=== PATIENT | male | born 1960 | race Two or more races ===

== ENCOUNTER 2017-11-11 06:50 | Day surgery (SDC) | payer BC ==
[2017-11-11] VITALS (11 sets, daily range): BP systolic 91–121; BP diastolic 42–81
[~2017-11-11] VITALS: Ht 162.6 cm; Wt 86.2 kg
[~2017-11-11 06:50] MED LIST: ACTOS15 MG ORAL; AMLODIPINE BESYL5 MG ORAL; ASPIR-LOW81 MG ORAL; ATORVASTATIN CA20 MG ORAL; Clindamycin 600mg 50 ML IV SCH; FENOFIBRATE145 M1 ORAL; GLIPIZIDE5 MG ORAL; METFORMIN HCL1000 M1 ORAL; VALSARTAN-HCTZ1 EAC3 ORAL; VITAMIN B122500 MCG PO; VITAMIN D1000 UNI1 ORAL; celeBREX 200mg Cap **SURGERY PATIENTS ONLY ORAL SCH; oxyCONTIN 20mg tab ORAL SCH
--- NOTE | 2017-11-11 06:55 | Pre-Procedure Note/Attestation ---
Pre-Procedure Note/Attestation Complete Prior to Procedure Planned Procedure: left Procedure Narrative: left tibial tunnel loc removal Indications for Procedure Pre-Operative Diagnosis: left knee painful implant Attestation I attest that I discussed the nature of the procedure; its benefits; risks and complications; and alternatives (and the risks and benefits of such alternatives ), prior to the procedure, with the patient (or the patient's legal aircraft sales representative). I attest that, if there was a reasonable possibility of needing a blood transfusion, the patient (or the patient's legal aircraft sales representative) was given the [facility] standardized written summary, pursuant to the Bharat Rebecca Blood Safety Act ([place] Health and Safety Code # 1645, as amended). I attest that I re-evaluated the patient just prior to the surgery and that there has been no change in the patient's H&P, except as documented below: none Rigoberto Dela Cruz MD Nov 11, 2017 06:55
[2017-11-11] MEDS ORDERED: Dexamethasone 4mg/ml vial ONE (09:40)
[2017-11-11] MEDS ORDERED: Lidocaine 1% MPF 10mg/ml 5ml ONE (09:40)
[2017-11-11] MEDS ORDERED: Midazolam 2mg/2ml Inj ONE (09:41)
[2017-11-11] MEDS ORDERED: fentaNYL 100 mcg/2 mL IV ONE (09:44)
[2017-11-11] MEDS ORDERED: LR 1000ml 1,000 ML IVLG SCH (09:49)
--- NOTE | 2017-11-11 09:55 | Anethesia Preoperative Eval ---
Anesthesia Pre-op PMH/ROS General Date of Evaluation: Nov 11, 2017 Time of Evaluation: 10:54 Anesthesiologist: Mc ASA Score: ASA 3 Mallampati Score Class I : Soft palate, uvula, fauces, pillars visible Class II: Soft palate, uvula, fauces visible Class III: Soft palate, base of uvula visible Class IV: Only hard plate visible Mallampati Classification: Class II Surgeon: Jose De Jesus Diagnosis: L Leg Pain Surgical Procedure: L Tibial Screw Removal Anesthesia History: none Family History: no anesthesia problems Allergies: Coded Allergies: PENICILLINS (Verified Allergy, Mild, 11/10/17) HIVES TETRACYCLINES (Verified Allergy, Unknown, 11/07/17) Medications: see eMAR Past Medical History Pulmonary: Reports: JAY Endocrine: Reports: DM Other: obesity - BMI 34 Anesthesia Pre-op Phys. Exam Physician Exam Last Vital Signs Date Time Temp Pulse Resp B/P (MAP) Pulse Ox O2 Delivery O2 Flow Rate FiO2 11/11/17 07:28 Room Air Room Air 11/11/17 07:20 97.2 88 18 121/81 (94) 95 97.2 Constitutional: NAD Neurologic: CN 2-12 intact Cardiovascular: RRR Respiratory: CTA Gastrointestinal: S/NT/ND Airway Exam Mallampati Score: Class II MO: limited ROM: limited Teeth: intact Anesthesia Pre-op A/P Risk Assessment & Plan Assessment: ASA 3 Plan: GA, BIS Status Change Before Surgery: No Pre-Antibiotics Dru Gram Ancef IV Given Within 1 Hr of Incision: Yes Time Given: 11:11 Niels Bentley MD Nov 11, 2017 09:55
--- NOTE | 2017-11-11 09:56 | 48 Hour Post Anesthesia Eval ---
Post Anesthesia Evaluation Procedure: L Tibial Screw Removal Date of Evaluation: Nov 11, 2017 Time of Evaluation: 14:23 Blood Pressure Systolic: 122 0: 77 Pulse Rate: 81 Respiratory Rate: 16 Temperature (Fahrenheit): 97.8 O2 Sat by Pulse Oximetry: 94 Airway: patent Nausea: No Vomiting: No Pain Intensity: 2 Hydration Status: adequate Cardiopulmonary Status: Stable Mental Status/LOC: patient returned to baseline Follow-up Care/Observations: 0 Post-Anesthesia Complications: 0 Follow-up care needed: ready to discharge Niels Bentley MD Nov 11, 2017 09:56
--- NOTE | 2017-11-11 09:56 | Immediate Post-Op Evaluation ---
Immediate Post-Op Evalulation Immediate Post-Op Evalulation Procedure: L Tibial Screw Removal Date of Evaluation: Nov 11, 2017 Time of Evaluation: 12:15 IV Fluids: 900 LR Blood Products: 0 Estimated Blood Loss: 2 Urinary Output: 0 Blood Pressure Systolic: 92 Blood Pressure Diastolic: 46 Pulse Rate: 83 Respiratory Rate: 16 O2 Sat by Pulse Oximetry: 95 Pain Score (1-10): 2 Nausea: No Vomiting: No Complications 0 Patient Status: awake, reacts, patent, extubated, none Hydration Status: adequate Dru Gram Ancef IV Given Within 1 Hr of Incision: Yes Time Given: 11:11 Niels Bentley MD Nov 11, 2017 09:56
[2017-11-11] MEDS ORDERED: Norco 5mg/325mg tab ORAL PRN ×2 (10:00→12:00)
[2017-11-11] MEDS ORDERED: Atropine Inj 1mg/10ml Syr IV PRN (10:00)
[2017-11-11] MEDS ORDERED: HYDROcodone/Acetamin 7.5/325 tab ORAL PRN (10:00)
[2017-11-11] MEDS ORDERED: Labetalol 5mg/ml 20ml vial IV PRN (10:00)
[2017-11-11] MEDS ORDERED: LORazepam Inj 2mg/ml 1ml IV PRN (10:00)
[2017-11-11] MEDS ORDERED: Hydromorphone 0.5mg/0.5ml inj IVP PRN (10:00)
[2017-11-11] MEDS ORDERED: DiphenhydrAMINE 50mg/ml Inj IVP PRN (10:00)
[2017-11-11] MEDS ORDERED: fentaNYL 100 mcg/2 mL IV PRN (10:00)
[2017-11-11] MEDS ORDERED: Ketorolac 30mg Inj IV PRN ×2 (10:00)
[2017-11-11] MEDS ORDERED: Metoclopramide 10mg/2ml Inj IVP PRN (10:00)
[2017-11-11] MEDS ORDERED: Midazolam 2mg/2ml Inj IVP PRN (10:00)
[2017-11-11] MEDS ORDERED: oxyCODONE HCL/Acetaminophen 5/325mg ORAL PRN (10:00)
[2017-11-11] MEDS ORDERED: NeoSporin Gu Irrig 1ml Amp IRRIG ONE (10:37)
[2017-11-11] MEDS ORDERED: Bupivacaine 0.5% Inj 30 ml vial INJ ONE (10:37)
[2017-11-11] MEDS ORDERED: Bacitracin 50000 Units Vial ONE (10:37)
[2017-11-11] MEDS ORDERED: EPINEPHrine 1mg/1ml Amp ONE (10:37)
[2017-11-11] MEDS ORDERED: Propofol 200mg/20ml IV ONE (11:00)
[2017-11-11] MEDS ORDERED: Sterile Water Irrig 1000ml IRRIG ONE (11:00)
[2017-11-11] MEDS ORDERED: LR 1000ml ONE (11:00)
[2017-11-11] MEDS ORDERED: NS Irrig 1000ml ONE (11:00)
--- NOTE | 2017-11-11 11:51 | Brief Operative Note ---
Immediate Post Operative Note Operative Note Chief Complaint: left knee painful implant Pre-op Diagnosis: left knee tibial tunnel loc pain Procedure: left knee removal of tibial tunnel loc Post-op Diagnosis: same as pre-op Findings: consistent w/pre-op dx studies Surgeon: md citlali Anesthesiologist: md tello Anesthesia: general Specimen: yes Complications: none Condition: stable Fluids: ns Estimated Blood Loss: minimal Drains: none Implant(s) used?: No Angelique Gonzalez Nov 11, 2017 11:51
[2017-11-11] MEDS ORDERED: D5 1/2NS 1,000 ML IV SCH (12:00)
[2017-11-11] MEDS ORDERED: Morphine Sulfate 2mg/ml Inj IVP PRN (12:00)
[2017-11-11] MEDS ORDERED: Tylenol #3 tab (300mg/30mg) ORAL PRN (12:00)
--- NOTE | 2017-11-11 16:45 | Operative Note - Dictated ---
DATE OF OPERATION: 11/11/2017 PREOPERATIVE DIAGNOSIS: Left knee retained painful tibial ACL fixation device which has backed out. POSTOPERATIVE DIAGNOSIS: Left knee retained painful tibial Tunneluck ACL fixation device which has backed out. PROCEDURE: Removal of Biomet tibial Tunneluck fixation device which has backed out. SURGEON: Rigoberto Dela Cruz M.D. BINDERY CHIEF: Angelique Gonzalez PA-C. ANESTHESIOLOGIST: Dr. Bentley. ANESTHESIA: LMA anesthesia. ESTIMATED BLOOD LOSS: Less than 10 mL. COMPLICATIONS: None. BRIEF HISTORY: The patient is a pleasant 57-year-old gentleman who had ACL reconstruction done. ACL reconstruction went well and he did well for about 3 to 4 years, however, he presented with slight bump over his left tibia. It was noted that the tibial hardware had backed out slightly. After full discussion of the risks and benefits of the surgery and complications associated with it, he opted for surgical treatment as described above. OPERATIVE PROCEDURE: The patient was brought to the operating table and was placed supine. All pressure points were well-padded. General LMA anesthesia was induced and the left leg was prepped and draped in usual sterile fashion. The left leg was exsanguinated and tourniquet was inflated to 275 mmHg. A standard incision was made over this hardware which could be palpated. The incision was taken through subcutaneous tissue. The Biomet tibial Tunneluck fixation device could be visualized and this was simply removed without any complications. Wounds were thoroughly irrigated. The bone was curetted. The skin was closed in 2-0 Vicryl suture and skin was closed using 3-0 Monocryl suture. Sterile dressing was applied and Steri-Strips were applied, and 0.5% Marcaine with epinephrine was injected. The patient tolerated the procedure well without any complication and was taken to recovery room in stable condition. All lap counts and instrument counts were correct. Rigoberto Dela Cruz M.D. DR: Sommer JOB#: [id number] CC: GUS
== END 2017-11-11 14:50 | disposition home or self-care (01) ==
LOC: SUR 06:50
DX: T84.84XA Pain due to internal orthopedic prosthetic devices, implants and grafts, initial encounter (principal); Y83.8 Other surgical procedures as the cause of abnormal reaction of the patient, or of later complication, without mention of misadventure at the time of the procedure; Y92.009 Unspecified place in unspecified non-institutional (private) residence as the place of occurrence of the external cause; E66.9 Obesity, unspecified; Z68.33 Body mass index [BMI] 33.0-33.9, adult; E11.9 Type 2 diabetes mellitus without complications; Z79.84 Long term (current) use of oral hypoglycemic drugs; E78.5 Hyperlipidemia, unspecified; I10 Essential (primary) hypertension; M06.9 Rheumatoid arthritis, unspecified; E55.9 Vitamin D deficiency, unspecified; K21.9 Gastro-esophageal reflux disease without esophagitis; E01.0 Iodine-deficiency related diffuse (endemic) goiter; G47.33 Obstructive sleep apnea (adult) (pediatric); Z88.1 Allergy status to other antibiotic agents; Z88.0 Allergy status to penicillin
CPT/HCPCS: 20680; 82962; J0171; J0690; J1100; J2250; J2405; J2704; J3010; J3490; J7120; 94003; 94150

== ENCOUNTER 2020-03-21 08:39 | Day surgery (SDC) | payer BC ==
[2020-03-21] VITALS (10 sets, daily range): BP systolic 84–133; BP diastolic 49–89
[~2020-03-21] VITALS: Ht 162.6 cm; Wt 90.7 kg
--- NOTE | 2020-03-21 07:09 | Pre-Procedure Note/Attestation ---
Pre-Procedure Note/Attestation Complete Prior to Procedure Planned Procedure: right Procedure Narrative: right shoulder scope, pancapsular release, resection of Ca deposit and possible RTC repair Indications for Procedure Pre-Operative Diagnosis: rt frozen shoulder Attestation I attest that I discussed the nature of the procedure; its benefits; risks and complications; and alternatives (and the risks and benefits of such alternatives), prior to the procedure, with the patient (or the patient's legal service liaison representative). I attest that, if there was a reasonable possibility of needing a blood transfusion, the patient (or the patient's legal service liaison representative) was given the [place] [facility] Services standardized written summary, pursuant to the Bharat Briar Blood Safety Act ([place] Health and Safety Code # 1645, as amended). I attest that I re-evaluated the patient just prior to the surgery and that there has been no change in the patient's H&P, except as documented below: NONE Rigoberto Dela Cruz MD Mar 21, 2020 07:09
[~2020-03-21 08:39] MED LIST changes: -Clindamycin 600mg 50 ML IV SCH; -celeBREX 200mg Cap **SURGERY PATIENTS ONLY ORAL SCH; -oxyCONTIN 20mg tab ORAL SCH
[2020-03-21] MEDS ORDERED: Ropivacaine 5mg/ml Vial 20ml INJ ONE (09:05)
[2020-03-21] MEDS ORDERED: Sodium Chloride 10ml vial INJ ONE (09:05)
[2020-03-21] MEDS ORDERED: Lidocaine 1% MPF 10mg/ml 5ml ONE (09:05)
[2020-03-21] MEDS ORDERED: LOSARTAN POTASS50 MG ORAL (09:13)
[2020-03-21] MEDS ORDERED: HYDROCHLOROTHIA25 MG ORAL (09:13)
[2020-03-21] MEDS ORDERED: ENBREL50 MG/1 M1 SUBQ (09:13)
--- NOTE | 2020-03-21 09:13 | Immediate Post-Op Evaluation ---
Immediate Post-Op Evalulation Immediate Post-Op Evalulation Procedure: R Shoulder Arthroscopy Date of Evaluation: Mar 21, 2020 Time of Evaluation: 12:45 IV Fluids: 400 LR Blood Products: 0 Estimated Blood Loss: 25 Urinary Output: 0 Blood Pressure Systolic: 91 Blood Pressure Diastolic: 54 Pulse Rate: 71 Respiratory Rate: 16 O2 Sat by Pulse Oximetry: 92 Temperature (Fahrenheit): 96.8 Pain Score (1-10): 1 Nausea: No Vomiting: No Complications 0 Patient Status: awake, reacts, patent, none Hydration Status: adequate Dru Grams Ancef IV Given Within 1 Hr of Incision: Yes Time Given: 10:11 Niels Bentley MD Mar 21, 2020 09:13
[2020-03-21] MEDS ORDERED: LR 1000ml 1,000 ML IVLG SCH (09:15)
[2020-03-21] MEDS ORDERED: Meperidine 25mg/1ml Inj (FOR RIGORS ONLY) IV PRN (09:15)
[2020-03-21] MEDS ORDERED: LORazepam Inj 2mg/ml 1ml IV PRN (09:15)
[2020-03-21] MEDS ORDERED: Atropine Sulfate 0.4mg/ml inj IVP PRN (09:15)
[2020-03-21] MEDS ORDERED: DiphenhydrAMINE 50mg/ml Inj IVP PRN (09:15)
[2020-03-21] MEDS ORDERED: fentaNYL 100 mcg/2 mL IV PRN (09:15)
[2020-03-21] MEDS ORDERED: Midazolam 2mg/2ml Inj IVP PRN (09:15)
[2020-03-21] MEDS ORDERED: Labetalol 5mg/ml 20ml vial IV PRN (09:15)
[2020-03-21] MEDS ORDERED: Metoclopramide 10mg/2ml Inj IVP PRN (09:15)
[2020-03-21] MEDS ORDERED: oxyCODONE HCL/Acetaminophen 5/325mg ORAL PRN (09:15)
[2020-03-21] MEDS ORDERED: Hydromorphone 0.5mg/0.5ml inj IVP PRN (09:15)
[2020-03-21] MEDS ORDERED: HYDROcodone/Acetamin 5/325 tab ORAL PRN ×2 (09:15→11:30)
[2020-03-21] MEDS ORDERED: HYDROcodone/Acetamin 7.5/325 tab ORAL PRN (09:15)
[2020-03-21] MEDS ORDERED: celeBREX 200mg Cap **SURGERY PATIENTS ONLY ORAL ONE ×2 (09:28→11:00)
[2020-03-21] MEDS ORDERED: oxyCONTIN 10mg tab ORAL ONE ×2 (09:28→11:00)
[2020-03-21] MEDS ORDERED: Bupivacaine 0.5% Inj 30 ml vial INJ ONE (10:23)
[2020-03-21] MEDS ORDERED: Ropivacaine 5mg/ml Vial 30ml INJ ONE (10:23)
--- NOTE | 2020-03-21 10:25 | 48 Hour Post Anesthesia Eval ---
Post Anesthesia Evaluation Procedure: R Shoulder Arthroscopy Date of Evaluation: Mar 21, 2020 Time of Evaluation: 14:48 Blood Pressure Systolic: 138 0: 89 Pulse Rate: 74 Respiratory Rate: 18 Temperature (Fahrenheit): 98 O2 Sat by Pulse Oximetry: 96 Airway: patent Nausea: No Vomiting: No Pain Intensity: 1 Hydration Status: adequate Cardiopulmonary Status: Stable Mental Status/LOC: patient returned to baseline Follow-up Care/Observations: 0 Post-Anesthesia Complications: 0 Follow-up care needed: ready to discharge Niels Bentley MD Mar 21, 2020 10:25
--- NOTE | 2020-03-21 10:25 | Anethesia Preoperative Eval ---
Anesthesia Pre-op PMH/ROS General Date of Evaluation: Mar 21, 2020 Time of Evaluation: 10:41 Anesthesiologist: Mc ASA Score: ASA 3 Mallampati Score Class I : Soft palate, uvula, fauces, pillars visible Class II: Soft palate, uvula, fauces visible Class III: Soft palate, base of uvula visible Class IV: Only hard plate visible Mallampati Classification: Class II Surgeon: Carol Diagnosis: R Shoulder Pain Surgical Procedure: R Shoulder Arthroscopy Anesthesia History: none Family History: no anesthesia problems Allergies: Coded Allergies: PENICILLINS (Verified Allergy, Mild, 11/10/17) HIVES TETRACYCLINES (Verified Allergy, Unknown, 11/07/17) Medications: see eMAR Patient NPO?: Yes Past Medical History Cardiovascular: Reports: HTN Endocrine: Reports: DM Other: obesity - BMI 36 PSxH Narrative: L Knee SX Anesthesia Pre-op Phys. Exam Physician Exam Last Vital Signs Date Time Temp Pulse Resp B/P (MAP) Pulse Ox O2 Delivery O2 Flow Rate FiO2 03/21/20 09:14 Room Air 03/21/20 09:14 97.7 84 18 133/84 95 Constitutional: NAD Neurologic: CN 2-12 intact Cardiovascular: RRR Respiratory: CTA Gastrointestinal: S/NT/ND Airway Exam Mallampati Score: Class II MO: full ROM: full Teeth: missing, intact Anesthesia Pre-op A/P Labs Chemistry Test 03/21/20 09:32 POC Whole Blood Glucose Pending Risk Assessment & Plan Assessment: ASA 3 Plan: GA, SED, Supraclavicular Block Status Change Before Surgery: No Pre-Antibiotics Dru Grams Ancef IV Given Within 1 Hr of Incision: Yes Time Given: 10:11 Niels Bentley MD Mar 21, 2020 10:25
[2020-03-21] MEDS ORDERED: Sterile Water Irrig 1000ml IRRIG ONE (11:00)
[2020-03-21] MEDS ORDERED: Clindamycin 600mg/D5W 50ml IV ONE (11:00)
[2020-03-21] MEDS ORDERED: LR 1000ml ONE (11:00)
[2020-03-21] MEDS ORDERED: NS Irrig 3000ml IRRIG ONE ×4 (11:00→11:53)
[2020-03-21] MEDS ORDERED: HYDROmorphone 1mg/ml Carpuject SUBQ PRN (11:30)
[2020-03-21] MEDS ORDERED: Tylenol #3 tab (300mg/30mg) ORAL PRN (11:30)
[2020-03-21] MEDS ORDERED: NS Irrig 1000ml IRRIG ONE (11:53)
--- NOTE | 2020-03-21 12:17 | Brief Operative Note ---
Immediate Post Operative Note Operative Note Chief Complaint: right shoulder pain Pre-op Diagnosis: right frozen shoulder Procedure: right shoulder scope, sad, mini rain, pancapsular release Post-op Diagnosis: same as pre-op Findings: consistent w/pre-op dx studies Surgeon: md citlali Door Closer Mechanic: daja cunha Anesthesiologist: md tello Anesthesia: general, regional Specimen: none Complications: none Condition: stable Fluids: ns Estimated Blood Loss: minimal Drains: none Implant(s) used?: No Angelique Cunha Mar 21, 2020 12:17
[2020-03-21] MEDS ORDERED: D5 1/2NS 1,000 ML IV SCH (15:00)
--- NOTE | 2020-03-21 17:14 | Operative Note - Dictated ---
DATE OF OPERATION: 03/21/2020 PREOPERATIVE DIAGNOSES: 1. Right shoulder adhesive capsulitis. 2. Right shoulder very small amount of calcium tracing insert in the rotator cuff. 3. Right shoulder possible small rotator cuff tear. POSTOPERATIVE DIAGNOSES: 1. Right shoulder adhesive capsulitis with tightness of the capsule. 2. Right shoulder degenerative anterior inferior labral tear without displacement. 3. Right shoulder subacromial impingement and bursitis. 4. No evidence of rotator cuff tear. PROCEDURE: 1. Right shoulder arthroscopy and extensive intra-articular shaving. 2. Right shoulder briones capsular release. 3. Right shoulder debridement of anterior inferior labrum. 4. Right shoulder subacromial bursoscopy, bursectomy, subacromial decompression. 5. Right shoulder mini-Hiral procedure (resection of inferior 30% distal end of the clavicle for coplaning). 6. Right shoulder evaluation of rotator cuff looking for any calcium deposit and no calcium deposit was noted. SURGEON: Rigoberto Dela Cruz MD ADOBE CQ DEVELOPER: Angelique Gonzalez PA-C. Dry End Tester was present during the actual operative portion of the case and was important and essential part of the operation. During the operation, the records assistant held and operated the arthroscopic camera for visualization, assisted by manipulating the arm to help with visualization, and helped with essential parts of the repair process as necessary such as operating surgical instruments under surgeon supervision, suture management, and wound closures. ANESTHESIOLOGIST: Niels Bentley MD ANESTHESIA: LMA anesthesia. ESTIMATED BLOOD LOSS: Minimal. COMPLICATIONS: None. SURGICAL INDICATION: Patient is a 59-year-old male who sustained the above injury to his shoulder. The patient was treated non-operative initially, but this did not alleviate the patients symptoms. Therefore, after discussing all non-surgical and surgical options, and discussing all foreseeable risk and benefits of surgery, the patient opted for surgical treatment as described above. PATIENT POSITIONING: Patient was brought to the operating room table and was placed on the operating room table. All pressure points were well padded. Time out was performed and preop antibiotics were given. General anesthesia was induced and patient was then placed in the lateral decubitus position. All pressure points were well padded again and an axillary roll was placed. Patient shoulder was then prepped and draped in the usual sterile fashion. Time out was performed and the appropriate preoperative antibiotic was given by the anesthesiologist. EXAMINATION OF SHOULDER UNDER ANESTHESIA: The shoulder was examined under anesthesia with all muscles well relaxed. The shoulder was forward flexed, abducted and was placed through full range of external and internal rotation. The anterior, posterior, and inferior stability of the shoulder was checked. The exam revealed there was evidence of adhesive capsulitis with decreased range of motion, stiffness and there was no evidence of instability. PORTAL PLACEMENT: The posterior portal was established 2 cm inferior and 1 cm medial to the edge of the posterior acromion. 1 cm skin incision was made using an eleven blade and using the blunt obturator, the cannula was gently placed through the capsule. The midglenoid portal was established just lateral to the coracoid process under direct visualization. Direction of the cannula was first established using a spinal needle, and subsequently, the cannula was placed through the capsule with a blunt obturator. The directional of cannula was first established using a spinal needle, and subsequently, the cannula was placed through the capsule with a blunt obturator. DIAGNOSTIC ARTHROSCOPY: The biceps tendon was probed and pulled through the joint for visualization. There was some scar tissue around the biceps tendon, but the biceps tendon was intact. The biceps anchor was palpated with a probe and was visualized. There was some fraying of the anterior as well as anterior superior labrum with degeneration of the attachment. However, there was no detachment of the biceps tendon from the glenoid. The posterior labrum and axillary recess was visualized. There was some degenerative posterior labral tearing. Actually had significant hyperemia consistent with adhesive capsulitis. The glenoid articular surface was visualized and it appeared normal. The articular surface of the rotator cuff was visualized and probed next. There was some fraying of the articular sided rotator cuff. However, there was no derek full-thickness tear. The humeral head articular surface was then visualized. There was no evidence of articular cartilage damage. Next the anterior labrum, middle gleno-humeral ligament, subscapularis tendon, and the anterior inferior gleno-humeral ligament were evaluated. The anterior capsule, anterior inferior glenohumeral ligament were hyperemic consistent with adhesive capsulitis. The subscap was intact. The anterior inferior labrum had a small 1 centimeter degenerative tearing without detachment and this was a nondisplaced tear. At this point, the scope was moved to the midglenoid portal and the posterior structures including the posterior labrum, posterior capsule and posterior cuff were visualized. There was extensive capsulitis of the posterior capsule. The subscapularis recess was devoid of any loose bodies and the anterior capsule was well attached to the humeral neck. The middle and anterior inferior glenohumeral ligament was visualized. These were hyperemic, inflamed. OPERATIVE DEBRIDEMENTS AND REPAIR: Care was given to all partial thickness tears and frayed structures in the shoulder joint. The frayed rotator cuff and labrum was debrided using a shaver initially through the anterior portal and subsequently through the posterior portal to complete the debridement. This allowed for smooth debridement of all affected structures and all loose fragments were removed. At this point, the care was given to the briones capsular release. Using electrocautery, the anterior capsule and middle glenohumeral ligaments were released. The rotator interval was released. The release was taken all way down to the anterior inferior glenohumeral ligament. With electrocautery subsequently using the basket, the axillary recess was released to the 12 o'clock position. At this point, the scope was placed in the anterior portal and the posterior capsule was released initially using electrocautery directly posteriorly and subsequently using a basket to avoid any thermal damage to the axillary nerve more inferiorly. The briones capsular release was performed in this fashion. Once this was completed, there was excellent briones capsular release and the scope was placed in the subacromial space. DIAGNOSTIC BURSOSCOPY AND SUBACROMIAL DECOMPRESSION: The subacromion bursa was entered from the posterior portal. The anterior portal was established under the CA ligament using a switching stick. Subacromial arthroscopy was initiated. There was extensive bursitis and thickened and inflamed bursa tissue present. The CA ligament appeared to be scuffed and frayed. The shaver was placed through the anterior cannula and debridement of the hypertrophic bursa tissue was accomplished. Once visualization was adequate, a lateral portal was established using a blunt trocar in the mid portion of the acromion bone in the anterior-posterior direction and approximately 2 cm lateral to the lateral edge of the acromion. Using combination of shaver and electrocautery the CA ligament was released from the undersurface of the acromion and a complete bursectomy was accomplished. At this point, a subacromial decompression was performed using a germán initially taking off 5-8 mm of the anterolateral edge of the acromion from the lateral portal and viewing from the posterior portal. Then the lateral border of the undersurface of the acromion was decompressed to the same dept as the anterolateral edge. A posterior trough was then created in the acromion in line with the posterior edge of the clavicle. At this point, the scope was placed in the lateral portal and the subacromial decompression was performed from the posterior portal decompressing the undersurface of the acromion to dept of 5-8 mm. The decompression was performed anterior to the previously marked trough all the way medially to the level of the AC joint. At all times, care was given not to take off too much bone in order to avoid risk of fracture of the acromion. An excellent subacromial decompression was performed in this fashion. At this point, the bursal side of the rotator cuff was examined. All the bursa over the rotator cuff was removed and the rotator cuff was examined with a probe. The arm was placed into external rotation, neutral, and then internal rotation. The scope was then placed in the posterior portal and the subacromial decompression was rechecked to assure there is no area of bone spur that would be still impinging onto the rotator cuff. EVALUATION OF DISTAL CLAVICLE AND DISTAL CLAVICLE RESECTION: Care was given to the distal end of the clavicle. Using electrocautery and iris, the distal end of the bursa and soft tissue around the distal end of the clavicle was debrided and cleaned. Care was given not to inflict excessive trauma to the ligaments of the AC joint. The distal end of the clavicle appeared to have an inferior osteophyte extending down well bellow the level of the acromion at the level of the AC joint. This appeared to be impinging onto the supraspinatus muscle belly and the musculotendinous junction of the rotator cuff. A mini-Hiral procedure was performed by using a germán to resect the inferior 30% of the distal end of the clavicle. This decompression allowed space for the inferior structures to slide without impingement. This co-planed the inferior edge of the distal clavicle with the inferior edge of the acromion. At this point, the using a spinal needle, multiple poke holes were made at the attachment of supraspinatus, infraspinatus, looking for any evidence of calcium deposit. No significant calcium deposit was noted. There was no significant and there was no need to excavate the rotator cuff or any calcium deposition. CONDITION AT DISCHARGE FROM OPERATING ROOM: The skin was re-approximated and sterile dressing and sling were applied. All lap counts and instrument counts were correct. Patient tolerated the procedure well without complications and was taken to the recovery room in stable conditions. Rigoberto Dela Cruz M.D. DR: PUNEET JOB#: [id number] CC: GUS
== END 2020-03-21 15:30 | disposition home or self-care (01) ==
LOC: SUR 08:39
DX: M75.01 Adhesive capsulitis of right shoulder (principal); M75.41 Impingement syndrome of right shoulder; S43.431A Superior glenoid labrum lesion of right shoulder, initial encounter; M75.111 Incomplete rotator cuff tear or rupture of right shoulder, not specified as traumatic; X58.XXXA Exposure to other specified factors, initial encounter; Y92.9 Unspecified place or not applicable; Z88.0 Allergy status to penicillin; Z88.8 Allergy status to other drugs, medicaments and biological substances; I10 Essential (primary) hypertension; E11.9 Type 2 diabetes mellitus without complications; E66.9 Obesity, unspecified; Z68.34 Body mass index [BMI] 34.0-34.9, adult
CPT/HCPCS: 29823; 29824; 82962; 94003; J0690; J1100; J2250; J2405; J2704; J2795; J7120; U0002; 94150